=== PATIENT | male | born 1970 | race Caucasian/White ===

== ENCOUNTER 2017-07-12 16:59 | Observation (INO) | payer OTHER, MEDICAID ==
[~2017-07-12] VITALS: Ht 182.9 cm; Wt 86.5 kg
[~2017-07-12 16:59] MED LIST: CYCL5TAB PO; DEXAMETHASONE SOD PHOS 4 MG/ML VIAL IV ONE; GLYCOPYRROLATE 1 MG/5 ML SYRINGE IV PUSH ONE; IBUP-232 PO; LIDOCAINE HCL 1% PF 5 ML AMPULE OTHER ONE; MIDAZOLAM HCL 2 MG/2 ML VIAL IV ONE; MORPHINE SULFATE 4 MG/ML INJ IV ONE; NEOSTIGMINE 3 MG/3 ML SYR IV ONE; OMEP20TA PO; ONDANSETRON HCL 4 MG/2 ML VIAL IV PUSH ONE; PROPOFOL 200 MG/20 ML AMP IV ONE; ROCURONIUM INJ 50 MG/5 ML SYRINGE IV PUSH ONE; SUCCINYLCHOLINE CHLORIDE 100 MG/5 ML SYRINGE IV PUSH ONE
[2017-07-12] MEDS ORDERED: SODIUM CHLORID 0.9% 500 ML IV PRN (19:15)
[2017-07-12] MEDS ORDERED: CHLORHEXIDINE GLUCONATE 2 % 1 PACK (2 CLOTHS) TOPICAL PRN (19:15)
[2017-07-12] MEDS ORDERED: LACTATED RINGER'S 1000 ML IV PRN (19:15)
[2017-07-12] MEDS ORDERED: INSULIN HUMAN REGULAR 1,000 UNITS/10 ML VIAL SQ PRN (19:15)
[2017-07-12] MEDS ORDERED: POVIDONE IODINE 5% (ANTISEPSIS KIT) 4 APPLICATIONS EACH NARE PRN (19:15)
[2017-07-12] MEDS ORDERED: METOPROLOL TARTRATE 25 MG TAB PO PRN (19:15)
[2017-07-12] MEDS ORDERED: BUPIVACAINE/EPINEPHRINE 0.5% 50 ML VIAL ONE (19:20)
--- NOTE | 2017-07-12 19:57 | MH ---
cc: ADRIENNE CONCEPCION M.D. DATE OF ADMISSION 07/12/2017 REASON FOR ADMISSION Acute right lower quadrant pain. HISTORY OF THE PRESENT ILLNESS This is a 46-year-old gentleman who had a one day history starting yesterday of generalized abdominal discomfort that localized in the periumbilical area and radiated to the right lower quadrant. He was seen in an outside facility after a CT scan done at outside imaging center showed probable appendicitis. He had fever over 101. The outside emergency room called me to transfer to the hospital with the operating room for treatment. PAST MEDICAL HISTORY Significant for: Kidney stones in the past. SOCIAL HISTORY He rarely uses alcohol. MEDICATIONS He takes: 1. Omeprazole. 2. Ibuprofen on occasion. PAST SURGICAL HISTORY No surgical history in the past. REVIEW OF SYSTEMS No pulmonary, cardiac or respiratory issues. PHYSICAL EXAMINATION GENERAL: On physical exam he is a pleasant gentleman who looks his stated age. He points to his right lower quadrant. Skin is soft. He looks tired. NECK: Supple. CHEST: Clear. HEART: Regular rate. ABDOMEN: Diffusely tender with rebound, guarding right lower quadrant. EXTREMITIES: He moves all extremities well. No clubbing, cyanosis or edema. NEUROLOGIC: He is alert and oriented. LABORATORY DATA He had a white count of 18,000. Chemistry showed essentially normal with lactic acid 1.3. Coags are normal. IMAGING Imaging done at an outside imaging facility, I do not have access to the actual images but it is reported that he had findings consistent with appendicitis. This was relayed to me by the ER physician. 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 PLAN Laparoscopic appendectomy. This was explained to the patient in detail. He appeared to understand. I have already talked to the operating room to proceed. Adrienne Concepcion MD JDB/KK /7:35 PM /7:46 PM
[2017-07-12] MEDS ORDERED: ACETAMINOPHEN 1000 MG/100 ML 100 ML IV ONE (20:08)
[2017-07-12] MEDS ORDERED: NORC5TAB PO (20:51)
--- NOTE | 2017-07-12 20:54 | HHI.PR ---
cc: Neftali Concepcion MD Immediate Post Op Note Procedure Date: Jul 12, 2017 Pre Op Diagnosis: (1) Abdominal pain, periumbilic (2) Right lower quadrant abdominal pain (3) Acute appendicitis (4) Elevated WBC count (5) Right lower quadrant abdominal pain Post Op Diagnosis: (1) Chills (2) Acute appendicitis (3) Elevated WBC count (4) Right lower quadrant abdominal pain (5) Right lower quadrant abdominal pain (6) Status post laparoscopic appendectomy Surgeon: Neftali Concepcion Clip [employer] Sunglasses Assembler(s): Please refer to or record Procedure: Laparoscopic appendectomy Findings: Inflamed appendix Complications: None Specimen(s) removed: Appendix Estimated blood loss: Minimal Anesthesia: General Drains: None IVF Patient to: PACU Implant/Devices: SEE IMPLANT LOG (if applicable) Neftali Concepcion MD Jul 12, 2017 20:54
[2017-07-12] MEDS ORDERED: DO NOT ADM ANY ANTICOAGULANT DRUGS PRN (20:55)
[2017-07-12] MEDS: SODIUM CHLOR 0.9% 1000 ML INJ 1,000 ML IV SCH (21:00)
[2017-07-12] MEDS ORDERED: ACETAMINOPHEN/HYDROcodone 325 MG/5 MG TAB PO PRN (21:00)
[2017-07-12] MEDS ORDERED: ONDANSETRON HCL 4 MG/2 ML VIAL IV PUSH PRN (21:00)
[2017-07-12] MEDS ORDERED: KETOROLAC TROMETHAMINE 30 MG/ML (IVP) VIAL IVP PRN (21:00)
[2017-07-12] MEDS ORDERED: Post-op Orders (for Pharmacy) MISC XX ONE (21:00)
[2017-07-12] MEDS ORDERED: FAMOTIDINE 20 MG/2 ML VIAL ONE (21:17)
[2017-07-12 22:30] VITALS: BP 128/84; PULSE 92; RESP 18; TEMP 96.1; O2SAT 99
[2017-07-13] VITALS: BP 117/72; PULSE 84; RESP 17; TEMP 98.1; O2SAT 94
[2017-07-13 01:57] VITALS: O2SAT 94
[2017-07-13] MEDS: SODIUM CHLOR 0.9% 1000 ML INJ 1,000 ML IV SCH ×2 (06:52→16:46)
[2017-07-13] MEDS: ACETAMINOPHEN/HYDROcodone 325 MG/5 MG TAB PO PRN ×2 (07:15→21:47)
[2017-07-13 08:00] VITALS: BP 118/73; PULSE 67; RESP 17; TEMP 96.4; O2SAT 93
--- NOTE | 2017-07-13 09:19 | MP ---
cc: ADRIENNE CONCEPCION M.D. DATE OF SURGERY 07/12/2017 PREOPERATIVE DIAGNOSIS Acute abdomen, right lower quadrant pain, appendicitis. POSTOPERATIVE DIAGNOSIS Acute abdomen, right lower quadrant pain, appendicitis. PROCEDURE Laparoscopic appendectomy ANESTHESIA General SURGEON Dr. Concepcion INDICATIONS This is a pleasant 46-year-old gentleman who had classic signs and symptomatology consistent with textbook appendicitis confirmed with radiologic imaging. Plans were made for above. PROCEDURE The patient taken to the operating room, placed in the supine position. He was already given preoperative antibiotics. Time-out was done after prepping and draping. We made an incision just above the umbilicus. Veress needle was inserted, saline load test was performed. The abdomen was insufflated to 50 mmHg. A 10 mm trocar was introduced. Camera was introduced. Two other working ports placed, 5 mm in the midline, one at the pubic tubercle and one above in the midline. The appendix can be seen. It is obviously inflamed. Omentum is stuck to it, this was taken down with blunt dissection, hydrodissection. The appendix was then taken down at the mesentery to the base of the appendix. Two Endo ties were then placed across the appendix, and then the appendix was then amputated, placed in an EndoCatch and pulled out through the umbilical incision. We then irrigated copiously. The pelvis was irrigated. The liver is smooth, peritoneal surfaces are smooth. The gallbladder looks normal. The cecum looks normal. Ascending colon looks normal. The omentum is then draped over the appendiceal stump and the irrigating solution and CO2 is removed. The 10 mm trocar was closed with a 0 Vicryl and skin is close at all three sites with 4-0 Vicryl. Steri-Strips applied. Sterile bandage applied. The patient tolerated the procedure well with no immediate postop complications. MD CYNTHIA Garcias/TYRONE /8:45 PM /9:13 AM
--- NOTE | 2017-07-13 09:23 | HHI.PR ---
cc: Adrienne Hunt MD Subjective Subjective Notes DAILY PROGRESS NOTE FOR SURGICAL ATTENDING, DR. ADRIENNE HUNT Patient doing well had urinary retention last night Objective Vitals/I&O Vital Signs Date Time Temp Pulse Resp B/P (MAP) Pulse Ox O2 Delivery O2 Flow Rate FiO2 07/13/17 08:00 96.4 67 17 118/73 (88) 93 07/12/17 21:40 Nasal Cannula 2 Labs Vital Signs Date Time Temp Pulse Resp B/P (MAP) Pulse Ox O2 Delivery O2 Flow Rate FiO2 07/13/17 08:00 96.4 67 17 118/73 (88) 93 07/12/17 21:40 Nasal Cannula 2 I/O 07/14/17 00:00 Intake Total 1000 ml Output Total 1450 ml Balance -450 ml Abdomen: Post-op tenderness Narrative Exam Up walking in room waiting for breakfast Has urinated a little bit A/P Problem List: (1) Postoperative urinary retention ICD Codes: N99.89 - Other postprocedural complications and disorders of genitourinary system; R33.8 - Other retention of urine Status: Acute (2) Status post laparoscopic appendectomy ICD Codes: Z90.49 - Acquired absence of other specified parts of digestive tract Status: Acute (3) Abdominal pain, periumbilic ICD Codes: R10.33 - Periumbilical pain Status: Resolved (4) Acute appendicitis ICD Codes: K35.80 - Unspecified acute appendicitis Status: Acute (5) Elevated WBC count ICD Codes: D72.829 - Elevated white blood cell count, unspecified (6) Right lower quadrant abdominal pain ICD Codes: R10.31 - Right lower quadrant pain Status: Resolved (7) Right lower quadrant abdominal pain ICD Codes: R10.31 - Right lower quadrant pain Status: Resolved Assessment and Plan Resectional gentleman status post laparoscopic appendectomy with postoperative urinary retention We'll start him on Flomax Slowly advance diet Anticipate discharge possibly today or tomorrow Will need follow-up appointment in 7-10 days after discharge Problem Qualifiers (1) Acute appendicitis: Qualified Codes: K35.3 - Acute appendicitis with localized peritonitis (2) Elevated WBC count: Qualified Codes: D72.825 - Bandemia Adrienne Hunt MD Jul 13, 2017 09:23
[2017-07-13] MEDS: TAMSULOSIN HCL 0.4 MG CAP PO SCH (09:37)
[2017-07-13 12:00] VITALS: BP 128/77; PULSE 69; RESP 17; TEMP 96.6; O2SAT 99
[2017-07-13 16:00] VITALS: BP 122/74; PULSE 78; RESP 17; TEMP 95.6; O2SAT 99
[2017-07-13 20:00] VITALS: BP 132/75; PULSE 80; RESP 17; TEMP 97.8; O2SAT 99
[2017-07-14] VITALS: BP 123/71; PULSE 76; RESP 17; TEMP 97.4; O2SAT 98
[2017-07-14] MEDS: SODIUM CHLOR 0.9% 1000 ML INJ 1,000 ML IV SCH (02:46)
[2017-07-14] MEDS: ACETAMINOPHEN/HYDROcodone 325 MG/5 MG TAB PO PRN ×2 (07:04→11:00)
[2017-07-14] MEDS: TAMSULOSIN HCL 0.4 MG CAP PO SCH (07:28)
[2017-07-14 08:00] VITALS: BP 128/80; PULSE 71; RESP 17; TEMP 97.9; O2SAT 98
[2017-07-14] MEDS ORDERED: TAMS5CAP PO (08:42)
[2017-07-14 10:15] VITALS: O2SAT 98
[2017-07-21] MEDS ORDERED: CIPR-9 PO (09:12)
[2017-07-21] MEDS ORDERED: VITA500T4 PO (09:39)
== END 2017-07-14 11:08 | disposition home or self-care (01) ==
LOC: HOR 18:15 → HSDC 18:25 → N07A 21:53
PROVIDERS: ADMIT Surgery; ATTEND Surgery
DX: R10.31 Right lower quadrant pain (principal); K35.3 Acute appendicitis with localized peritonitis; D72.825 Bandemia; N99.89 Other postprocedural complications and disorders of genitourinary system; R33.8 Other retention of urine
CPT/HCPCS: 80048; 83605; 85025; 85610; 85730; 88304; 96374; 96375; 99285; G0378; J0131; J0295; J0330; J1100; J1170; J2250; J2270; J2405; J2710; J3010; J7030